=== PATIENT | female | born 2000 | race Hispanic/Latino ===

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

== ENCOUNTER 2020-01-02 20:23 | Emergency (ER) | payer OTHER ==
[2020-01-02] MEDS ORDERED: METHYLPREDNISOLONE SOD SUCC 125MG/2ML VIAL ONE (20:46)
[2020-01-02] MEDS ORDERED: FAMOTIDINE 20MG TAB 20 MG TAB ONE (20:46)
[2020-01-02] MEDS ORDERED: HYDROXYZINE HCL 25 MG TABLET ONE (20:46)
== END 2020-01-02 21:19 | disposition home or self-care (01) ==
LOC: EDH 20:23
DX: L50.0 Allergic urticaria (principal)
CPT/HCPCS: 82948; 96372; 99283; J2930

== ENCOUNTER 2023-07-09 18:58 | Emergency (ER) | payer BC ==
[~2023-07-09] VITALS: Ht 162.6 cm; Wt 97.1 kg
[2023-07-09 19:24] LABS: BASOPHILS # (AUTO) 0.02 K/uL (0.00-0.20); BASOPHILS % (AUTO) 0.2 % (0.0-5.0); EOSINOPHILS # (AUTO) 0.09 K/uL (0.00-0.70); EOSINOPHILS % (AUTO) 0.9 % (0.0-8.0); HEMATOCRIT 33.4 % (36-48); IMMATURE GRANULOCYTE ABSOLUTE 0.03 K/uL (0-1); LYMPHOCYTES # (AUTO) 1.9 K/uL (1.0-4.8); MEAN CORPUSCULAR HEMOGLOBIN 21.4 pg (27.0-33.0); MEAN CORPUSCULAR HGB CONC 30.2 g/dL (32.0-36.0); MEAN CORPUSCULAR VOLUME 70.8 fL (79-99); MONOCYTES # (AUTO) 0.5 K/uL (0.1-1.0); NEUTROPHILS # (AUTO) 7.6 K/uL (1.8-7.7); NEUTROPHILS % (AUTO) 74.6 % (40.0-77.0); PLATELET COUNT (AUTO) 301 K/uL (130-400); RED BLOOD CELL COUNT(AUTO) 4.72 MIL/uL (4.00-5.50); RED CELL DISTRIBUTION WIDTH 16.8 % (11.0-15.5); WHITE BLOOD COUNT (AUTO) 10.2 K/uL (4.8-10.8)
[2023-07-09 19:47] LABS: CREATININE 0.9 mg/dL (0.5-1.0); POTASSIUM 4.1 mmol/L (3.5-5.1)
[2023-07-09 19:51] LABS: ALBUMIN 3.3 g/dL (3.5-5.0); BILIRUBIN,TOTAL 0.3 mg/dL (0.2-1.0); TOTAL PROTEIN, SERUM 7.9 g/dL (6.0-8.3)
[2023-07-09 20:19] LABS: APPEARANCE,URINE CLEAR (CLEAR); BILIRUBIN,URINE NEGATIVE (NEGATIVE); COLOR,URINE LIGHT-YELLOW (YELLOW); GLUCOSE, URINE (UA) NEGATIVE (NEGATIVE); KETONES,URINE NEGATIVE (NEGATIVE); LEUKOCYTE ESTERASE ,URINE NEGATIVE Leu/uL (NEGATIVE); NITRATE,URINE NEGATIVE (NEGATIVE); OCCULT BLOOD,URINE NEGATIVE (NEGATIVE); PROTEIN,URINE NEGATIVE (NEGATIVE); UROBILINOGEN,URINE 0.2 mg/dL (0.2-1.0)
[2023-07-09 20:21] LABS: ADD UA MICROSCOPIC NO; HCG,QUALITATIVE URINE NEGATIVE (NEGATIVE)
[2023-07-09] MEDS ORDERED: FAMO20TA8 PO (21:41)
[2023-07-09] MEDS: MAG/ALUM/SIMETH 30 ML UDCUP PO ONE (21:41)
[2023-07-09] MEDS ORDERED: PANT40TA PO (21:41)
[2023-07-09] MEDS: LIDOCAINE HCL 2% VISCOUS 15 ML UDCUP PO ONE (21:41)
[2023-07-09 22:03] VITALS: BP 122/80; PULSE 97; RESP 17; O2SAT 96
== END 2023-07-09 22:15 | disposition home or self-care (01) ==
LOC: EDH 18:58
DX: K29.70 Gastritis, unspecified, without bleeding (principal); R19.7 Diarrhea, unspecified
CPT/HCPCS: 36415; 76705; 80053; 81003; 81025; 83690; 85025